=== PATIENT | male | born 1990 | race Caucasian/White ===

== ENCOUNTER 2020-11-26 20:44 | Emergency (ER) | payer OTHER ==
[~2020-11-26 20:44] MED LIST: AMOXICILLIN500 M1 PO; CLEOCIN HCL300 MG PO; CLINDAMYCIN HC300 MG PO; CYCLOBENZAPRINE5 MG PO; IBUPROFEN600 MG PO; IBUPROFEN800 MG PO; VISCOUS LIDOCAINE 2% PO; Viscous lidocaine2% TOP
[2020-11-27] MEDS ORDERED: DOXYCYCLINE MO100 MG PO (00:33)
[2020-11-27] MEDS ORDERED: LODINE CAP 300300 MG PO (00:33)
== END 2020-11-27 00:29 | disposition home or self-care (01) ==
LOC: ER1 20:44
DX: R68.84 Jaw pain (principal); Z88.0 Allergy status to penicillin; F17.210 Nicotine dependence, cigarettes, uncomplicated
CPT/HCPCS: 99283

== ENCOUNTER 2021-05-25 17:40 | Emergency (ER) | payer MEDICAID ==
[~2021-05-25 17:40] MED LIST changes: +DOXYCYCLINE MO100 MG PO; +LODINE CAP 300300 MG PO
[2021-05-25] MEDS ORDERED: IBUPROFEN600 MG PO (20:34)
== END 2021-05-25 20:37 | disposition home or self-care (01) ==
LOC: ER1 17:40
DX: M79.671 Pain in right foot (principal); F17.200 Nicotine dependence, unspecified, uncomplicated; Z88.0 Allergy status to penicillin
CPT/HCPCS: 73630; 99283

== ENCOUNTER 2021-07-20 22:46 | Emergency (ER) | payer MEDICAID ==
[2021-07-21 00:13] LABS: HEMOGLOBIN 17.6 gm/dl (14.0-17.5); RED BLOOD COUNT 5.65 M/UL (4.20-5.50)
[2021-07-21 00:40] LABS: BUN/CREATININE RATIO 20 (0-10)
[2021-07-21] MEDS ORDERED: BENTYL 20MG TAB20 MG PO (02:47)
[2021-07-21] MEDS ORDERED: ZOFRAN ODT 4 MG4 MG PO (02:47)
[2021-07-21] MEDS ORDERED: LODINE CAP 300300 MG PO (02:47)
== END 2021-07-21 02:55 | disposition home or self-care (01) ==
LOC: ER1 22:46
PROVIDERS: Emergency Medicine
DX: R10.31 Right lower quadrant pain (principal); R11.2 Nausea with vomiting, unspecified; R19.7 Diarrhea, unspecified; F17.210 Nicotine dependence, cigarettes, uncomplicated; Z88.0 Allergy status to penicillin
CPT/HCPCS: 80053; 81001; 85025; 99284; Q9967

== ENCOUNTER 2021-07-27 18:15 | Emergency (ER) | payer OTHER ==
[~2021-07-27 18:15] MED LIST changes: +BENTYL 20MG TAB20 MG PO; +ZOFRAN ODT 4 MG4 MG PO
[2021-07-27] MEDS ORDERED: IBUPROFEN600 MG PO (19:57)
[2021-07-27] MEDS ORDERED: CLEOCIN HCL300 MG PO (19:57)
== END 2021-07-27 20:30 | disposition home or self-care (01) ==
LOC: ER1 18:15
DX: K02.9 Dental caries, unspecified (principal); F17.290 Nicotine dependence, other tobacco product, uncomplicated; Z88.0 Allergy status to penicillin
CPT/HCPCS: 71045; 99283

== ENCOUNTER 2021-10-05 20:29 | Emergency (ER) | payer BC ==
[2021-10-05] MEDS ORDERED: IBUPROFEN600 MG PO (22:51)
[2021-10-05] MEDS ORDERED: FLONASE 0.05% N16 GM (22:51)
[2021-10-05] MEDS ORDERED: ZYRTEC10 MG PO (22:51)
== END 2021-10-05 22:55 | disposition home or self-care (01) ==
LOC: ER1 20:29
DX: H60.92 Unspecified otitis externa, left ear (principal); F17.210 Nicotine dependence, cigarettes, uncomplicated; Z88.0 Allergy status to penicillin; Z20.822 Contact with and (suspected) exposure to COVID-19
CPT/HCPCS: 99283; U0002